=== PATIENT | male | born 1980 | race Caucasian/White ===

== ENCOUNTER 2019-09-05 05:47 | Inpatient (IN) | payer OTHER ==
[2019-09-05] VITALS (12 sets, daily range): BP systolic 127–167; BP diastolic 64–102
[~2019-09-05] VITALS: Ht 188 cm; Wt 158.8 kg
[~2019-09-05 05:47] MED LIST: XARELTO10 MG ORAL
[2019-09-05] MEDS ORDERED: Phenylephrine 10mg/ml Vial ONE (06:20)
[2019-09-05] MEDS ORDERED: Dexamethasone 4mg/ml vial ONE (06:33)
[2019-09-05] MEDS ORDERED: Lidocaine 1% MPF 10mg/ml 5ml ONE (06:33)
[2019-09-05] MEDS ORDERED: Thrombin 5000 units TOPIC ONE (06:35)
[2019-09-05] MEDS ORDERED: Bacitracin 50000 Units Vial ONE (06:36)
[2019-09-05] MEDS ORDERED: Succinylcholine 20mg/ml 10ml vial ONE (06:36)
[2019-09-05] MEDS ORDERED: Rocuronium Bromide 50mg/5ml Inj IV ONE (06:36)
[2019-09-05] MEDS ORDERED: Gelfoam Size TOPIC ONE (06:36)
[2019-09-05] MEDS ORDERED: fentaNYL 100 mcg/2 mL IV ONE ×2 (06:36→08:18)
[2019-09-05] MEDS ORDERED: Midazolam 2mg/2ml Inj ONE (06:37)
[2019-09-05] MEDS ORDERED: LR 1000ml ONE (07:00)
[2019-09-05] MEDS ORDERED: Propofol 1,000mg/ 100ml btl IV ONE (07:00)
[2019-09-05] MEDS ORDERED: Sterile Water Irrig 1000ml IRRIG ONE (07:00)
[2019-09-05] MEDS ORDERED: ceFAZolin sod 2 GM in D5W 110 ML IVPB ONE (07:00)
--- NOTE | 2019-09-05 07:17 | Pre-Procedure Note/Attestation ---
Pre-Procedure Note/Attestation Complete Prior to Procedure Planned Procedure: not applicable Procedure Narrative: Artificial disc replacement of C56, anterior cervical discectomy and fusion of C67 Indications for Procedure Pre-Operative Diagnosis: Herniation C45,56,67 Attestation I attest that I discussed the nature of the procedure; its benefits; risks and complications; and alternatives (and the risks and benefits of such alternatives ), prior to the procedure, with the patient (or the patient's legal tax representative). I attest that, if there was a reasonable possibility of needing a blood transfusion, the patient (or the patient's legal tax representative) was given the [facility] standardized written summary, pursuant to the Danny Neftali Blood Safety Act ([place] Health and Safety Code # 1645, as amended). I attest that I re-evaluated the patient just prior to the surgery and that there has been no change in the patient's H&P, except as documented below: Roldan Jackson MD Sep 05, 2019 07:17
--- NOTE | 2019-09-05 07:18 | Brief Operative Note ---
Immediate Post Operative Note Operative Note Chief Complaint: neck pain and radiculopathy bilat Pre-op Diagnosis: Herniation C45,56,67 Procedure: Artificial disc replacement of C56, anterior cervical discectomy and fusion of C67 Post-op Diagnosis: same as pre-op Findings: consistent w/pre-op dx studies Surgeon: Manuel Site Manager: Riley Anesthesiologist: RABIA Anesthesia: general Specimen: none Complications: none Condition: stable Fluids: IVF Estimated Blood Loss: minimal Drains: none Implant(s) used?: Yes - prodisc c sz 5,nuvasive interlock sz 6, [id number] Roldan Jackson MD Sep 05, 2019 07:18
[2019-09-05] MEDS ORDERED: Morphine Sulfate 10mg/ml Inj ONE (08:17)
--- NOTE | 2019-09-05 08:39 | Anethesia Preoperative Eval ---
Anesthesia Pre-op PMH/ROS General Date of Evaluation: Sep 05, 2019 Time of Evaluation: 06:58 Anesthesiologist: Keaton ASA Score: ASA 3 Mallampati Score Class I : Soft palate, uvula, fauces, pillars visible Class II: Soft palate, uvula, fauces visible Class III: Soft palate, base of uvula visible Class IV: Only hard plate visible Mallampati Classification: Class II Surgeon: Manuel Diagnosis: Cervical radiculopathy Surgical Procedure: ACDF Anesthesia History: none Family History: no anesthesia problems Allergies: Coded Allergies: No Known Allergies (Unverified , 09/05/19) Medications: see eMAR Patient NPO?: Yes NPO Date: Sep 04, 2019 NPO Time: 1999 Past Medical History Cardiovascular: Denies: HTN, CAD, [place], valve dz, arrhythmia, other Pulmonary: Reports: JAIME - possible; Denies: asthma, COPD, other Gastrointestinal/Genitourinary: Reports: GERD - mild; Denies: CRI, ESRD, other Neurologic/Psychiatric: Reports: other - chronic pain; Denies: dementia, CVA, depression/anxiety, TIA Endocrine: Denies: DM, hypothyroidism, steroids, other HEENT: Denies: cataract (L), cataract (R), glaucoma, [place] (L), [place] (R), other Hematology/Immune: Reports: DVT - Protein C and S deficiency h/oDVT and PE; Denies: anemia, bleeding disorder, other Musculoskeletal/Integumentary: Denies: OA, RA, DJD, DDD, edema, other Other: obesity - morbid obesity PMH Narrative: as above PSxH Narrative: ORIF ankle Anesthesia Pre-op Phys. Exam Physician Exam Last Vital Signs Date Time Temp Pulse Resp B/P (MAP) Pulse Ox O2 Delivery O2 Flow Rate FiO2 09/05/19 06:32 98.0 70 20 127/64 (85) 96 09/05/19 06:31 Room Air Constitutional: NAD Neurologic: CN 2-12 intact Cardiovascular: RRR, no M/R/G Respiratory: CTA Gastrointestinal: other - obesty Airway Exam Mallampati Score: Class II MO: full Neck: flexible ROM: limited Teeth: intact Dentures: no upper, no lower Anesthesia Pre-op A/P Labs see chart Studies Pre-op Studies: EKG - NSR Risk Assessment & Plan Assessment: ASA 3 Plan: GA with ETT neuromonitoring Status Change Before Surgery: No Pre-Antibiotics Dru gr of Ancef Given Within 1 Hr of Incision: Yes Time Given: 08:02 Ulysses Pugh MD Sep 05, 2019 08:39
[2019-09-05] MEDS ORDERED: LR 1000ml 1,000 ML IVLG SCH (08:40)
[2019-09-05] MEDS ORDERED: Meperidine 50mg/ml Inj(FOR RIGORS ONLY) IV PRN (08:45)
[2019-09-05] MEDS ORDERED: Hydromorphone 0.5mg/0.5ml inj IVP PRN (08:45)
[2019-09-05] MEDS ORDERED: Acetaminophen (Non formulary) 100 ML IV ONE (08:45)
[2019-09-05] MEDS ORDERED: DiphenhydrAMINE 50mg/ml Inj IVP PRN (08:45)
[2019-09-05] MEDS ORDERED: Metoclopramide 10mg/2ml Inj IVP PRN ×3 (08:45→12:00)
[2019-09-05] MEDS ORDERED: Ketorolac 30mg Inj IV PRN (08:45)
[2019-09-05] MEDS ORDERED: Propofol 200mg/20ml IV ONE (08:52)
[2019-09-05] MEDS ORDERED: Glycopyrrolate 0.2mg/ml 1ml Vial ONE (08:59)
[2019-09-05] MEDS ORDERED: Neostigmine 1mg/ml 10ml Inj ONE (08:59)
[2019-09-05] MEDS ORDERED: Sodium Chloride 10ml vial INJ ONE (08:59)
--- NOTE | 2019-09-05 10:22 | Immediate Post-Op Evaluation ---
Immediate Post-Op Evalulation Immediate Post-Op Evalulation Procedure: ACDF C5-C6-C7 Date of Evaluation: Sep 05, 2019 Time of Evaluation: 10:21 IV Fluids: 1200 Blood Products: none Estimated Blood Loss: 50 Urinary Output: 350 Blood Pressure Systolic: 157 Blood Pressure Diastolic: 89 Pulse Rate: 73 Respiratory Rate: 20 O2 Sat by Pulse Oximetry: 97 Temperature (Fahrenheit): 97.6 Pain Score (1-10): 1 Nausea: No Vomiting: No Complications none Patient Status: reacts, patent, extubated, none Hydration Status: adequate Ulysses Pugh MD Sep 05, 2019 10:22
--- NOTE | 2019-09-05 11:30 | NUR ---
NURSE NOTES: REC'D FROM PACU SP ACDF C6-C7,ARTIFICIAL DISC REPLACEMENT C5-C6. AWAKE/ALERT. ANT NECK DERMBAND DRESSING DRY AND INTACT. WITH ICE PACK ON. NO C/O PAIN. IN NO DISTRESS.
[2019-09-05] MEDS ORDERED: Morphine Sulfate 2mg/ml Inj(IV/IM USE ONLY) IV PRN (12:00)
[2019-09-05] MEDS ORDERED: HYDROcodone/Acetamin 5/325 tab ORAL PRN (12:00)
[2019-09-05] MEDS ORDERED: HYDROmorphone 1mg/ml Carpuject IVP PRN (12:00)
[2019-09-05] MEDS ORDERED: Milk of Magnesia 30ml Ud ORAL PRN (12:00)
[2019-09-05] MEDS ORDERED: HYDROcodone/Acetamin 7.5/325 tab ORAL PRN ×2 (12:00)
[2019-09-05] MEDS ORDERED: Naloxone 0.4mg/ml Inj IVP PRN (12:00)
[2019-09-05] MEDS ORDERED: Morphine Sulfate 4mg/ml Inj (IV USE ONLY) IV PRN ×2 (12:00)
[2019-09-05] MEDS ORDERED: NS w/KCl 20mEq 1000ml 1,000 ML IV SCH (12:30)
[2019-09-05] MEDS ORDERED: Chloraseptic Spray 20mL Bottle ORAL PRN (13:00)
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
[2019-09-05] MEDS ORDERED: NORCO 10-325 T1 EACH ORAL (15:05)
[2019-09-05] MEDS ORDERED: CARISOPRODOL350 MG ORAL (15:06)
[2019-09-05] MEDS ORDERED: Dexamethasone 4mg/ml vial IVP SCH (16:00)
[2019-09-05] MEDS ORDERED: ceFAZolin sod 1 GM in D5W 55 ML IV SCH (16:00)
--- NOTE | 2019-09-05 16:07 | NUR ---
P.T Note: P.T evaluation and P.T instructions provided /completed on spinal precautions and proper proper mechanics in performing ADl/functional mobility tasks with good verbalization of understanding and return demonstration. Pt functioning safely and independently within the surgical guidelines. Skilled P.T services no longer needed at this time.
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
--- NOTE | 2019-09-05 16:27 | NUR ---
CASE MANAGEMENT:REVIEW 38 YR OLD MALE HERE FOR ELECTIVE SURGERY SI: NECK PAIN AND RADICULOPATHY 98.0 70 20 127/64 96% ON RA IS: TO SURGERY FOR: ANTERIOR CERVICAL DISCECTOMY AND FUSION OF C67 : TO MED/SURG [facility]
--- NOTE | 2019-09-05 17:41 | Diagnostic Imaging Report ---
Indication: Neck pain Technique: Intraoperative fluoroscopic imaging. Total number of images submitted 5 Total fluoroscopy time 72.3 seconds Total fluoroscopy dose 23.13 mGy Operating surgeon: Manuel Comparison: None Findings: Fluoroscopic imaging from spinal surgery submitted for archival to PACS. Images demonstrate anterior fusion at C6-C7 and disc replacement at C5-C6. Note that the radiologist was not present during image acquisition. Impression: Intraoperative fluoroscopic imaging. Please see operative report.
[2019-09-05] MEDS ORDERED: Docusate 100mg cap ORAL SCH (18:00)
--- NOTE | 2019-09-05 18:00 | NUR ---
NURSE NOTES: DISCHARGED HOME ACCPD BY IN STABLE CONDITION. DC INSTRUCTIONS AND RX GIVEN.
[2019-09-05] MEDS ORDERED: Tubing IV Secondary IV ONE (18:04)
--- NOTE | 2019-09-05 18:10 | NUR ---
NURSE NOTES: dr lenore krishna informed pt went home.
[2019-09-06 08:50] VITALS: BP 118/56
--- NOTE | 2019-09-06 08:50 | 48 Hour Post Anesthesia Eval ---
Post Anesthesia Evaluation Procedure: ACDF C5-C6-C7 Date of Evaluation: Sep 05, 2019 Time of Evaluation: 17:45 Blood Pressure Systolic: 118 0: 56 Pulse Rate: 72 Respiratory Rate: 20 Temperature (Fahrenheit): 97.5 O2 Sat by Pulse Oximetry: 98 Airway: patent Nausea: No Vomiting: No Pain Intensity: 2 Hydration Status: adequate Cardiopulmonary Status: stable Mental Status/LOC: patient returned to baseline Follow-up Care/Observations: n/a Post-Anesthesia Complications: none Follow-up care needed: ready to discharge Ulysses Pugh MD Sep 06, 2019 08:50
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
--- NOTE | 2019-09-12 19:00 | Operative Note - Dictated ---
DATE OF OPERATION: 09/05/2019 SURGEON: Roldan Jackson M.D., Orthopaedic Spine Surgeon. VICE PRESIDENT MARKETING & DEVELOPMENT: Lupillo Lin M.D. PREOPERATIVE DIAGNOSES: 1. Intractable neck pain. 2. Radiculopathy. 3. Herniation, C5-C6, C6-C7, C4-C5. 4. Neural foraminal stenosis, C5-C6, C6-C7, C4-C5. 5. Stenosis. POSTOPERATIVE DIAGNOSES: 1. Intractable neck pain. 2. Radiculopathy. 3. Herniation, C5-C6, C6-C7, C4-C5. 4. Neural foraminal stenosis, C5-C6, C6-C7, C4-C5. 5. Stenosis. PROCEDURE PERFORMED: 1. Anterior cervical discectomy and artificial disc replacement of C5-C6 using a ProDisc-C size 5 height. 2. Anterior cervical discectomy and artificial disc replacement of C6-C7, using NuVasive Interlock C size 6 PEEK cage with 3 screws of 13 mm length and Osteocel allograft bone and local autograft. 3. Use of intraoperative microscope. 4. Motor-evoked potential monitoring. 5. Somatosensory-evoked potential monitoring. 6. Supervision and interpretation of fluoroscopy. COMPLICATIONS: None. ANESTHESIA: General. ESTIMATED BLOOD LOSS: Less than 100 mL. INDICATIONS FOR SURGERY: This patient is a 38-year-old male, who has a history of diagnoses as listed above. As of result of this, the patient sustained intractable neck pain; radiculopathy; and herniation at C5-C6, C6-C7, and C4-C5; neural foraminal stenosis at C5-C6, C6-C7, and C4-C5; and stenosis. We tried a course of conservative management, but despite this course, there was still a significant component of persistent, recalcitrant neck pain and arm pain. The MRI demonstrated significant neural foraminal compromise secondary to disc herniations at C5-C6 and C6-C7. We had a long discussion with Nir regarding the risks and benefits of surgery. Our discussion included but was not limited to nonoperative management, chiropractic management, another epidural steroid injection as well as definitive management in the form of surgery. We recommended an artificial disc replacement of cervical C5-C6 and anterior cervical discectomy and fusion of cervical C6-C7 as final definitive management. We reviewed the risks and benefits of surgery with the patient. Our discussion included a comprehensive review of the clinical issues and the nature of the clinical decision. We reviewed the alternatives, including doing nothing. The patient elected to proceed accordingly with an artificial disc replacement of cervical C5-C6 and anterior cervical discectomy and fusion of cervical C6-C7. We had a long discussion regarding the risks, alternatives, and benefits of surgery. Our description of the risks included a discussion in person as well as a signed consent which detailed all pertinent risks from the procedure itself. Briefly, our discussion included but was not limited to infection, bleeding, pseudarthrosis, spinal cord injury, neurovascular injury, dural tear, CSF leak, neuropathy, paralysis, permanent weakness/drop foot/drop arm, paresthesias, blindness, palsy, and weakness. The patient understood there may be a need for a revision surgery or additional procedures. Approach-related complications including dysphonia, dysphagia, blindness, permanent vocal cord and neural injury, hematoma, swallowing and breathing difficulty. Medical complications were reviewed including liver, kidney, shock, cardiopulmonary failure, anesthesia complications including , swelling, damage to the musculature, larynx/voice injury or loss, esophagus/throat, trachea, blood vessels and muscles/muscular sprain and lungs/pneumothorax during this surgical procedure; injury to deeper structures may be temporary or permanent. After this review of risks, the patient understood these and elected to proceed. A written and verbal consent was given. We discussed the pros and cons of all the alternatives. We discussed the uncertainties associated with the decision. Afterwards, I assessed the patient's understanding and explored their preferences. All questions were answered and no guarantees were given. Medical clearance was obtained prior to surgery. INTRAOPERATIVE FINDINGS: At C5-C6, I noted a tear in the posterior longitudinal ligament approximately 20 degrees cephalad to caudad. This tear gave rise posteriorly to a posterior limb of the disc itself. This was carefully probed with a Microsect 1-B and 2B curette and the posterior limb of the disc herniation was noticed. This was then mobilized and resected with a combination of Kerrison-1 and Kerrison-2 rongeurs. There was evidence of herniated fragment encroaching on the thecal sac and spinal cord at this level. The disc itself was soft and spongy. There was no evidence of calcification or degeneration of the disc itself. C6-C7: Here I noted a tear in the PLL approximately 20 degrees cephalad to caudad. This was probed with a Microsect 1-B curette and this led to the remainder of the herniated fragment, which was encroaching on the thecal sac, neural elements, and the neural foramina. This was then carefully resected with a combination of Deckers and Kerrison rongeurs. Afterwards, a complete and thorough decompression was performed without difficulty. DESCRIPTION OF PROCEDURE: Under the benefit of general endotracheal anesthesia and with the assistance of the entire operative team, the patient was moved from the rnardin onto the operative table in the supine position. The head was secured and carefully positioned appropriately. Bilateral arms were secured with Gel Pads and foam and all bony prominences were padded. For the bilateral lower extremities, SCD and SERGE hose were placed for DVT prophylaxis. A surgical timeout was called which corroborated our planned procedure of an artificial disc replacement of cervical C5-C6 and anterior cervical discectomy and fusion of cervical C6-C7. Preoperative antibiotics were administered within 30 minutes of the incision for antibiotic prophylaxis. Using lateral fluoroscopic radiography, the operative levels were delineated. Next, the wound was prepped and draped with chlorhexidine and sterile drapes. An incision was based on lateral fluoroscopy and we centered our incision at the C5-C6 and C6-C7 interspace and next using a standard Draper-Davis anterior-based approach, the incision was taken down through the skin and subcutaneous tissues until the vertebral bodies and their corresponding disc spaces were visualized. A needle was placed into the interspace to confirm placement of the operative interspace and we performed the remainder of procedure under microscopic visualization. Next, using bipolar and Bovie cautery to ensure meticulous hemostasis, the longus colli was mobilized bilaterally and retractors were placed deep to the longus colli bilaterally to address retraction. Next, we turned our attention to the radical anterior discectomy. This was initially performed at C5-C6 first by using a 15 blade scalpel followed by narrow pituitaries and a Microsect 5-B curette was used to denude the endplate of all cartilaginous tissue. The disc quality itself was soft and spongy and not dessicated or calcified whatsoever. This was reseced with pituitaries and kerrisons until all was removed and only the endplates superior and inferior were left to be addressed. Next, using a LUVHAN AM8 drill bit, the vertebral endplates were denuded of all residual cartilage in a fmtm-[id number]-cpij and zbpmf-xz-duelh fashion, and ultimately the posterior uncinate joints bilaterally and posterior osteophytic lips and margins were carefully denuded until clear visualization of the posterior longitudinal ligament was possible. An endplate preparation was performed in the exact same fashion using an intervertebral tray worker, sequential distraction was obtained throughout the disc space. We saw a tear/rent in the PLL and this was carefully mobilized and dissected using a Microsect 1-B curette until we visualized a discrete disc herniation with compression of the spinal cord as well as neural foramina which was significant. This neural foraminal compression was carefully resected using a Kerrison-1 and Kerrison-2 rongeurs until complete decompression of the spinal cord was visualized and complete decompression of the neural foramina and nerve root therein as well as the axilla and lateral margin of the nerve root was visualized and subsequently completely decompressed. The family was notified at one-hour intervals throughout the procedure to provide for consistent updates. We next turned our attention towards trialing our implant within the disc space. We initially tried size 5 and this ProDisc Cervical spacer fit well in regard to depth and width. This implant was opened and prepared. Next, under direct visualization, I confirmed excellent fit in respect to the anterior and posterior vertebral bodies, the uncinate joints, and in regard to toggle. Once satisfied with this placement on serial AP and lateral fluoroscopy, I turned my attention towards cutting our rosario. These were cut in the bones using a reciprocating drill and afterwards all free fragments of bone were irrigated. Next, FloSeal was placed into the interspace, then removed in its entirety, and the implant was inserted using fluoroscopic guidance. Next the Synthes ProDisc C size 5 ADR was then carefully advanced and secured into the intervertebral space under direct visualization and with supervision of AP and lateral fluoroscopic views. I next turned my attention towards the radical anterior discectomy. This was then performed at Cervical C6-C7 first by using a 15 blade scalpel followed by narrow pituitaries and a Microsect 5-B curette was used to denude the endplate of all cartilaginous tissue. The disc itself was spongy and not collapsed. There was no calcification within the disc or nucleus whatsoever noted. Next, using a LUVHAN AM8 drill bit, the vertebral endplates were denuded of all cartilaginous tissue in a pvaw-tt-julr and gbnbd-vs-wmgim fashion, and ultimately the posterior uncinate joints bilaterally and posterior osteophytic lips and margins were carefully denuded until wide and thorough visualization of the posterior longitudinal ligament was possible. At this level, the endplate preparation was performed in the exact same fashion using an intervertebral tray worker, sequential distraction was obtained throughout the disc space. We saw a tear/rent in the PLL and this was carefully mobilized and dissected using a Microsect 1-B curette until we visualized an obvious disc herniation with compression of the spinal cord as well as neural foramina which was also significant. This neural foraminal compression was carefully resected using a Kerrison-1 and Kerrison-2 rongeurs until complete decompression of the spinal cord was visualized and complete decompression of the neural foramina and nerve root therein as well as the axilla and lateral margin of the nerve root was visualized and subsequently completely decompressed. We next turned our attention towards trialing our implant within the disc space. We initially tried size 5 and afterwards size 6 trial from the NuVasive Interlock system at each level, which appeared to be appropriate under AP and lateral fluoroscopy as well as in terms of its height, depth, width, and lack of toggle. The PEEK (polyetheretherketone) interbody cages were then both packed with allograft bone from Osteocel and local autograft bone matrix. Next, these were then carefully advanced and secured into their intervertebral spaces under direct visualization and with supervision of AP and lateral fluoroscopic views. We next turned our attention towards plating. Plating was performed at each level with the NuVasive Interlock C plating system. A total of three screws, size 13 mm in length were inserted and confirmed under AP and lateral fluoroscopy and confirmed to be in excellent position. After a finger sweep, we confirmed removal of all sponges. The retractor was removed and we next turned our attention to meticulous hemostasis with FloSeal and bipolar cautery. After the sponge and needle count was again found to be correct with our second count, we next turned our attention to closure. The wound was again copiously irrigated with antibiotic-impregnated saline. Closure consisted of 4-0 clear nylon for the platysma, and 5-0 clear nylon for the superficial skin. Final skin closure and dressings consisted of Dermabond. Prior to final closure, a final radiograph was obtained which demonstrated the hardware was intact with excellent position throughout. The patient tolerated the procedure well. The patient was carefully extubated after the conclusion of surgery. We discussed the findings of the surgery with the family upon completion of the case. At this point, the patient was transferred to the spine floor for further observation. Roldan Jackson M.D. DR: FRANCISCO JAVIER JOB#: [id number] CC: This is a repeat operative note dictation. The last operative note apparently dictation was distorted and so the dictation audio was reviewed and this was re-dictated. JACINTO
== END 2019-09-05 18:05 | disposition home or self-care (01) | DRG 472 ==
LOC: SDSOVERFLO 05:59 → 3E 11:36
DX: M50.122 Cervical disc disorder at C5-C6 level with radiculopathy (principal); D68.59 Other primary thrombophilia; Z68.41 Body mass index [BMI] 40.0-44.9, adult; V89.2XXS Person injured in unspecified motor-vehicle accident, traffic, sequela; Z86.711 Personal history of pulmonary embolism; Z79.01 Long term (current) use of anticoagulants; Z86.718 Personal history of other venous thrombosis and embolism; E66.9 Obesity, unspecified; M48.02 Spinal stenosis, cervical region
CPT/HCPCS: 36415; 72040; 76000; 86850; 86900; 86901; 87081; 94003; 94150; J2250; J2370; J2405; J2710